=== PATIENT | male | born 1990 | race Caucasian/White ===

== ENCOUNTER 2022-12-30 09:28 | Emergency (ER) | payer OTHER ==
[2022-12-30 09:36] VITALS: RESP 16
[2022-12-30] MEDS ORDERED: SODIUM CHLORIDE 0.9% 1,000 ML IV STA (10:05)
[2022-12-30] MEDS ORDERED: KETOROLAC 15 MG/ML 1 ML VIAL IVP STA (10:05)
--- NOTE | 2022-12-30 10:26 | ED ---
ENT HPI - General Chief complaint: Dental/Oral Stated complaint: Pain in Mouth Time Seen by Provider: 12/30/22 09:37 Source: patient, RN notes reviewed Mode of arrival: ambulatory Limitations: no limitations - History of Present Illness Initial comments: This is a 32-year-old male who presents to the emergency department for pain in his lower mouth. States that when he woke up, he noticed pain behind his front lower teeth as well as pain and swelling underneath his tongue. Denies any history of similar symptoms in the past. He has also noticed a bump to the left side of his neck. Denies any fevers, chills, or difficulty breathing. Also denies any difficulty speaking or swallowing. He has not noticed any swelling to his cheeks or pain to the upper jaw. He just relocated to this area and has not yet found a dentist. He is also concerned about seeing a dentist, as he states that the last time he saw one they pulled 6 of his teeth. Denies any fevers, chills, sore throat, cough, dyspnea, chest pain, palpitations, abdominal pain, nausea, vomiting, diarrhea, back pain, or headaches. MD complaint: tooth pain - Related Data Previous Rx's Medication Instructions Recorded Amoxic-Pot Clav 875-125Mg 1 tab PO Q12HR 10 Days #20 tab 12/30/22 [Augmentin 875-125] HYDROcodone/APAP 5-325MG [[place] 1 tab PO Q6HR PRN 3 Days #12 tab 12/30/22 5-325] predniSONE 50 mg PO DAILY 5 Days #5 tab 12/30/22 Allergies Allergy/AdvReac Type Severity Reaction Status Date / Time No Known Allergies Allergy Verified 12/30/22 09:36 Review of Systems ROS Statement: Those systems with pertinent positive or pertinent negative responses have been documented in the HPI. ROS Other: All systems not noted in ROS Statement are negative. 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 syncope History of Any Multi-Drug Resistant Organisms: None Reported Past Surgical History: No Surgical Hx Reported Past Psychological History: No Psychological Hx Reported, ADD/ADHD, Anxiety, PTSD Smoking Status: Current every day smoker Past Alcohol Use History: Abuse Past Drug Use History: Marijuana General Exam Limitations: no limitations General appearance: alert, in no apparent distress Head exam: Present: atraumatic, normocephalic, normal inspection ENT exam: Present: other (Mild sublingual fullness. No tongue elevation. There is no submandibular swelling or neck edema.) Neck exam: Present: other (Palpable lump to the left side front of the neck.) Neurological exam: Present: alert, oriented X3, CN II-XII intact Psychiatric exam: Present: normal affect, normal mood Skin exam: Present: warm, dry, intact, normal color. Absent: rash Course Vital Signs 12/30/22 12/30/22 09:32 12:38 Temperature 98.0 F 98.2 F Pulse Rate 77 69 Respiratory 16 16 Rate Blood Pressure 137/89 136/97 O2 Sat by Pulse 100 100 Oximetry Medical Decision Making - Medical Decision Making This is a 32-year-old male who presents to the emergency department for mouth pain. Was pt. sent in by a medical professional or institution? @ -No Did you speak to anyone other than the patient for history? @ -No Did you review nursing and triage notes? @ -Yes, and I agree, it is accurate with regards to the patient's symptoms. Were old charts reviewed? @ -No Differential Diagnosis? @ -Differential Mouth Pain: Dental abscess, chipped tooth, dental carries, eduardo's angina, trigeminal neuralgia, this is not meant to be an all-inclusive list. EKG interpreted by me (3pts min.)? @ -Not obtained X-rays interpreted by me (1pt min.)? @ -Not obtained CT interpreted by me (1pt min.)? @ -Computed tomography scan of the soft tissue neck and facial bones obtained. My interpretation identifies bilateral lingual tonsillar hypertrophy. I identify no evidence of airway narrowing. U/S interpreted by me (1pt. min.)? @ -Not obtained What testing was considered but not performed? (CT, X-rays, U/S, labs)? Why? @ -None What meds were considered but not given? Why? @ -None Did you discuss the management of the patient with other professionals? @ -No Did you reconcile home meds? @ -No Was smoking cessation discussed for >3mins.? @ -No Was critical care preformed (if so, how long)? @ -No Were there social determinants of health that impacted care today? How? (Homelessness, low income, unemployed, alcoholism, drug addiction, transportation, low edu. Level, literacy, decrease access to med. care, long-term, rehab)? @ -No Was there de-escalation of care discussed even if they declined? (Discuss DNR or withdrawal of care, Hospice)? @ -No What co-morbidities impacted this encounter? (DM, HTN, Smoking, COPD, CAD, Cancer, CVA, Hep., AIDS, mental health diagnosis, sleep apnea, morbid obesity)? @ -None Was patient admitted / discharged? @ -Discharged. Given the location of his pain, blood work and imaging was obtained to rule out another acute process. Lab work obtained revealing minor leukocytosis and a mild elevation in lactic acid. Computed tomography scan of the facial bones and soft tissue neck obtained. Imaging identified a questionable fracture through the base of the maxillary spine. Patient denies any injuries or pain to this area. Imaging also identified mild cervical lymp hadenopathy and mild lingual tonsillar hypertrophy. Patient given IV fluids and Toradol, which was helpful for his symptoms. physical exam is not consistent with a Eduardo's angina. While he does have mild fullness under the tongue, there is no tongue elevation, submandibular swelling, drooling, or a muffled voice. The CT scan also had no findings to suggest this. Exam is more so consistent with a stone or swelling in the sublingual duct. Prescription for Augmentin, [place], and prednisone provided with dosing instructions reviewed. Patient is advised that the [place] may be sedating and he should avoid driving or operating machinery when taking this. Information for ENT follow-up provided f or further evaluation of ongoing symptoms. He is instructed to contact them for a follow up appointment. Undiagnosed new problem with uncertain prognosis? @ -None Drug Therapy requiring intensive monitoring for toxicity (Heparin, Nitro, Insulin, Cardizem)? @ -None Were any procedures done? @ -None Diagnosis/symptom? @ -Cervical lymphadenopathy, lingual tonsilar hypertrophy Acute, or Chronic, or Acute on Chronic? @ -Acute Uncomplicated (without systemic symptoms) or Complicated (systemic symptoms)? @ -Uncomplicated Side effects of treatment? @ -None Exacerbation, Progression, or Severe Exacerbation] @ -Not applicable Poses a threat to life or bodily function? @ -No Return precautions reviewed in depth, the patient is instructed to return to the emergency department with any new, worsening, or concerning symptoms. Patient verbalized understanding. This case was discussed in detail with the attending ED physician, Dr. Osei. P resentation, findings, and treatment plan discussed in detail as well. - Lab Data Result diagrams: 12/30/22 10:10 12/30/22 10:10 Lab Results 12/30/22 12/30/22 12/30/22 Range/Units 10:10 10:10 10:10 WBC 11.3 H (3.8-10.6) k/uL RBC 5.03 (4.30-5.90) m/uL Hgb 15.8 (13.0-17.5) gm/dL Hct 46.1 (39.0-53.0) % MCV 91.6 (80.0-100.0) fL MCH 31.3 (25.0-35.0) pg MCHC 34.2 (31.0-37.0) g/dL RDW 12.6 (11.5-15.5) % Plt Count 165 (150-450) k/uL MPV 9.7 Neutrophils % 73 % Lymphocytes % 15 % Monocytes % 7 % Eosinophils % 2 % Basophils % 0 % Neutrophils # 8.3 H (1.3-7.7) k/uL Lymphocytes # 1.7 (1.0-4.8) k/uL Monocytes # 0.8 (0-1.0) k/uL Eosinophils # 0.3 (0-0.7) k/uL Basophils # 0.1 (0-0.2) k/uL Sodium 140 (137-145) mmol/L Potassium 3.9 (3.5-5.1) mmol/L Chloride 97 L (98-107) mmol/L Carbon Dioxide 34 H (22-30) mmol/L Anion Gap 9 mmol/L BUN 19 (9-20) mg/dL Creatinine 0.85 (0.66-1.25) mg/dL Est GFR (CKD-EPI)AfAm >90 (>60 ml/min/1.73 sqM) Est GFR (CKD-EPI)NonAf >90 (>60 ml/min/1.73 sqM) Glucose 89 (74-99) mg/dL Lactic Ac Sepsis Rflx Plasma Lactic Acid Marcin 2.8 H* (0.7-2.0) mmol/L Calcium 9.5 (8.4-10.2) mg/dL Total Bilirubin 1.5 H (0.2-1.3) mg/dL AST 29 (17-59) U/L ALT 24 (4-49) U/L Alkaline Phosphatase 59 (38-126) U/L C-Reactive Protein 0.5 (<1.0) mg/dL Total Protein 7.6 (6.3-8.2) g/dL Albumin 4.6 (3.5-5.0) g/dL 12/30/22 Range/Units 11:06 WBC (3.8-10.6) k/uL RBC (4.30-5.90) m/uL Hgb (13.0-17.5) gm/dL Hct (39.0-53.0) % MCV (80.0-100.0) fL MCH (25.0-35.0) pg MCHC (31.0-37.0) g/dL RDW (11.5-15.5) % Plt Count (150-450) k/uL MPV Neutrophils % % Lymphocytes % % Monocytes % % Eosinophils % % Basophils % % Neutrophils # (1.3-7.7) k/uL Lymphocytes # (1.0-4.8) k/uL Monocytes # (0-1.0) k/uL Eosinophils # (0-0.7) k/uL Basophils # (0-0.2) k/uL Sodium (137-145) mmol/L Potassium (3.5-5.1) mmol/L Chloride (98-107) mmol/L Carbon Dioxide (22-30) mmol/L Anion Gap mmol/L BUN (9-20) mg/dL Creatinine (0.66-1.25) mg/dL Est GFR (CKD-EPI)AfAm (>60 ml/min/1.73 sqM) Est GFR (CKD-EPI)NonAf (>60 ml/min/1.73 sqM) Glucose (74-99) mg/dL Lactic Ac Sepsis Rflx Y Plasma Lactic Acid Marcin (0.7-2.0) mmol/L Calcium (8.4-10.2) mg/dL Total Bilirubin (0.2-1.3) mg/dL AST (17-59) U/L ALT (4-49) U/L Alkaline Phosphatase (38-126) U/L C-Reactive Protein (<1.0) mg/dL Total Protein (6.3-8.2) g/dL Albumin (3.5-5.0) g/dL - Radiology Data Radiology results: report reviewed, image reviewed Disposition Clinical Impression: Cervical lymphadenopathy, Lingual tonsil hypertrophy, Pain, dental Disposition: HOME SELF-CARE Instructions (If sedation given, give patient instructions): Lymphadenopathy (ED), Toothache (ED) Additional Instructions: Return to the emergency department with any new, worsening, or concerning symptoms, especially if you have fevers, an increase in swelling, or difficulty breathing. Take the prednisone daily for 5 days. Take the antibiotic as prescribed for 10 days. Take the [place] sparingly when your pain is the most severe. Beware that it may be sedating and you should avoid driving or operating machinery when taking this. Contact the ENT provider as listed below for reevaluation of symptoms. Follow up with your primary care provider in 1-2 days. Prescriptions: Amoxic-Pot Clav 875-125Mg [Augmentin 875-125] 1 tab PO Q12HR 10 Days #20 tab HYDROcodone/APAP 5-325MG [[place] 5-325] 1 tab PO Q6HR PRN 3 Days #12 tab PRN Reason: Pain predniSONE 50 mg PO DAILY 5 Days #5 tab Is patient prescribed a controlled substance at d/c from ED?: Yes When asked, does pt state using other controlled substances?: No If prescribed controlled substance>3 days was MAPS reviewed?: Prescribed <3 Days Referrals: Sohan Duckworth MD [Primary Care Provider] - 1-2 days Sy Kaiser DO [Doctor of Osteopathic Medicine] - 1-2 days
[2022-12-30 10:27] LABS: Basophils # (A) 0.1 k/uL (0-0.2); Basophils % (A) 0 %; Eosinophils # (A) 0.3 k/uL (0-0.7); Eosinophils % (A) 2 %; HCT 46.1 % (39.0-53.0); HGB 15.8 gm/dL (13.0-17.5); Lymphocytes # (A) 1.7 k/uL (1.0-4.8); Lymphocytes % (A) 15 %; MCH 31.3 pg (25.0-35.0); MCHC 34.2 g/dL (31.0-37.0); MCV 91.6 fL (80.0-100.0); Mean Platelet Volume 9.7; Monocytes # (A) 0.8 k/uL (0-1.0); Monocytes % (A) 7 %; Neutrophils # (A) 8.3 k/uL (1.3-7.7); Neutrophils % (A) 73 %; Platelet Count 165 k/uL (150-450); RBC 5.03 m/uL (4.30-5.90); RDW 12.6 % (11.5-15.5); WBC 11.3 k/uL (3.8-10.6)
[2022-12-30 10:46] LABS: ALT 24 U/L (4-49); AST 29 U/L (17-59); African American GFR (CKD) >90 (>60 ml/min/1.73 sqM); Albumin 4.6 g/dL (3.5-5.0); Alkaline Phosphatase 59 U/L (38-126); Anion Gap 9 mmol/L; Blood Urea Nitrogen 19 mg/dL (9-20); Calcium 9.5 mg/dL (8.4-10.2); Carbon Dioxide 34 mmol/L (22-30); Chloride 97 mmol/L (98-107); Glucose 89 mg/dL (74-99); Non-African American GFR(CKD) >90 (>60 ml/min/1.73 sqM); Potassium 3.9 mmol/L (3.5-5.1); Sodium 140 mmol/L (137-145); Total Bilirubin 1.5 mg/dL (0.2-1.3); Total Protein 7.6 g/dL (6.3-8.2)
[2022-12-30 11:18] LABS: C Reactive Protein 0.5 mg/dL (<1.0)
--- NOTE | 2022-12-30 11:33 | CT ---
EXAMINATION TYPE: CT soft tissue neck w con, CT facial bones w con DATE OF EXAM: 12/30/2022 COMPARISON: None HISTORY: 32-year-old male with lump on left side of the neck, mouth swelling/ pain TECHNIQUE: Contiguous axial scanning of the facial bones as well as soft tissues of the neck performe d with IV Contrast, patient injected with 100 mL of Isovue 300. Coronal/sagittal reconstructions perf ormed. CT DLP: 782.2 mGycm Automated exposure control for dose reduction was used. FINDINGS: FACIAL BONES: Mild mucosal thickening throughout the ethmoid air cells and maxillary sinuses. There is a 1.1 cm muc osal retention cyst from the roof of the left maxillary sinus. Osteomeatal complexes are patent. No a ir-fluid levels. Orbits and globes are intact. There is a fracture through the base of the maxillary spine seen on sag ittal series. This seems to be some overlying soft tissue swelling present as well. Otherwise, no acute facial bone fracture seen. Mastoid air cells and middle ear cavities well pneumatized. Since some cerumen within the deep right external auditory canal. SOFT TISSUES OF THE NECK: Mild prominence to the adenoid soft tissues. Mild bilateral lingual tonsillar hypertrophy. Epiglottis and prevertebral soft tissues are satisfactory. Glottic and subglottic structures as well as the tracheal column and visualized upper lungs are clear . The thyroid gland, bilateral submandibular glands, and parotid glands appear satisfactory. Prominent bilateral upper cervical lymph nodes. Some of these are borderline to mildly enlarged measu ring up to 1.5 cm short axis. IMPRESSION (facial bones and soft tissues of the neck): 1. THERE APPEARS TO BE A FRACTURE THROUGH THE BASE OF THE MAXILLARY SPINE (FACIAL BONES SAGITTAL IMAG E 44) WITH SOME OVERLYING SOFT TISSUE SWELLING. 2. MILD CHRONIC ETHMOID AND MAXILLARY SINUS DISEASE. 3. BORDERLINE AND MILDLY ENLARGED BILATERAL UPPER CERVICAL LYMPH NODES MEASURING UP TO 1.5 CM SHORT A XIS, LIKELY REACTIVE/POST INFLAMMATORY. 4. MILD BILATERAL LINGUAL TONSILLAR HYPERTROPHY.
[2022-12-30] MEDS ORDERED: DEXAMETHASONE SOD PHOSPHATE 10 MG/ML 1 ML VIAL IVP STA (12:04)
[2022-12-30] MEDS ORDERED: MORPHINE SULFATE 4 MG/ML SYRINGE IVP STA (12:04)
[2022-12-30] MEDS ORDERED: ACET/COD 300 MG/30 MG STARTER PACK 6 TAB BTL PO STA (12:05)
[2022-12-30] MEDS ORDERED: AMOXIC-POT CLAV 875MG STARTER PACK 2 TAB BTL PO STA (12:05)
[2022-12-30 12:39] VITALS: BP 136/97; PULSE 69; TEMP 98.2
== END 2022-12-30 12:55 | disposition home or self-care (01) ==
LOC: EC 09:28
DX: J32.0 Chronic maxillary sinusitis (principal); J35.1 Hypertrophy of tonsils; F12.90 Cannabis use, unspecified, uncomplicated; F17.200 Nicotine dependence, unspecified, uncomplicated
CPT/HCPCS: 36415; 80053; 83605; 85025; 86140; 70487; 70491; 99284; 96374; 96375 ×2; 96361 ×2; J2270; J1100; J1885; Q9967